=== PATIENT | female | born 1975 | race Caucasian/White ===

== ENCOUNTER 2022-10-16 20:10 | Emergency (ER) | payer MEDICAID ==
[~2022-10-16] VITALS: Ht 152.4 cm; Wt 51.3 kg
--- NOTE | 2022-10-16 20:14 | NUR ---
PT BIBA TO BED 8
[2022-10-16 20:16] VITALS: BP 119/77; PULSE 94; RESP 18; TEMP 97.4; O2SAT 98
--- NOTE | 2022-10-16 20:27 | NUR ---
46 YO F BIBA C/O SYNCOPE S/P PROCEDURE. PT REFUSES TO STATE WHAT TYPE OF PROCEDURE BUT STATES THEY GAVE HER MEDICATION FOR THE PROCEDURE THAT CAUSED THE SYNCOPE. PT AXO2, STATING "THE YEAR IS 1974" WHEN ASKED WHAT YEAR IT IS CURRENTLY. STATES PAIN TO RIGHT FLANK 5/10 PAIN. PT STATES THIS PAIN HAS BEEN OCCURING SINCE A PRIOR PROCEDURE 3 MONTHS AGO. CALL LIGHT WITHIN REACH AND BED IN LOWEST POSITION. NKDA NO MED HX.
[2022-10-16] MEDS ORDERED: NACL 0.9% 1,000 ML IV ONE (20:50)
[2022-10-16 21:19] LABS: BASOPHILS % (AUTO) 0.3 % (0.0-2.0); EOSINOPHILS # (AUTO) 0.1 K/uL (0-0.4); HEMATOCRIT 42.3 % (36-48); HEMOGLOBIN 14.2 g/dL (12.0-16.0); LYMPHOCYTES # (AUTO) 2.3 K/uL (2.5-16.5); LYMPHOCYTES % (AUTO) 41.6 % (20.5-51.1); MEAN CORPUSCULAR HEMOGLOBIN 30 pg (27-31); MEAN CORPUSCULAR HGB CONC 34 g/dL (33-37); MEAN CORPUSCULAR VOLUME 89.6 fL (80-94); MONOCYTES # (AUTO) 0.4 K/uL (0.8-1.0); MONOCYTES % (AUTO) 7.2 % (1.7-9.3); NEUTROPHILS # (AUTO) 2.7 K/uL (1.8-7.7); NEUTROPHILS % (AUTO) 49.9 % (42.2-75.2); PLATELET COUNT (AUTO) 291 K/uL (140-450); RED BLOOD CELL COUNT(AUTO) 4.72 MIL/uL (4.20-5.40); RED CELL DISTRIBUTION WIDTH 14.3 % (11.6-13.7); WHITE BLOOD COUNT (AUTO) 5.5 K/uL (4.8-10.8)
[2022-10-16 21:42] LABS: ALBUMIN 3.5 g/dL (3.4-5.0); ANION GAP 13.8 (8-16); CARBON DIOXIDE 25.8 mmol/L (21-32); CREATININE 0.5 mg/dL (0.6-1.3); POTASSIUM 3.6 mmol/L (3.5-5.1); TOTAL BILIRUBIN 0.3 mg/dL (0.0-1.0)
--- NOTE | 2022-10-16 21:48 | NUR ---
PENDING DISPO AFTER NS FLUIDS GIVEN. PT IS A&OX4 RESP EVEN AND UNLABORED. PT IS ON BEDSIDE CARIDAC MONTIOR
[2022-10-16 21:58] VITALS: BP 112/54; PULSE 96; RESP 16; O2SAT 99
--- NOTE | 2022-10-16 21:58 | NUR ---
Patient discharged with v/s stable. Written and verbal after care instructions given and explained. Patient verbalized understanding. Ambulatory with steady gait. All questions addressed prior to discharge. Advised to follow up with PMD.
== END 2022-10-16 21:58 | disposition home or self-care (01) ==
LOC: MED 20:10
DX: R55 Syncope and collapse (principal); E86.0 Dehydration
CPT/HCPCS: 36415; 80053; 85025; 96360; 99283; J7030